=== PATIENT | female | born 1955 | race Two or more races ===

== ENCOUNTER 2017-03-18 08:13 | Outpatient (CLI) | payer OTHER ==
[2017-03-18 08:37] LABS: BASOPHILS # (AUTO) 0.1 10^3/uL (0.0-0.1); BASOPHILS % (AUTO) 1.2 %; EOSINOPHILS # (AUTO) 0.1 10^3/uL (0.0-0.7); EOSINOPHILS % (AUTO) 2.2 %; HCT - HEMATOCRIT 42.8 % (37.0-47.0); HGB - HEMOGLOBIN 14.6 g/dL (12.0-16.0); LYMPHOCYTES # (AUTO) 2.1 10^3/uL (1.5-3.5); LYMPHOCYTES % (AUTO) 36.1 %; MEAN CORPUSCULAR HEMOGLOBIN 30.7 pg (27.0-31.0); MEAN CORPUSCULAR VOLUME 90.2 fL (81.0-99.0); MONOCYTES # (AUTO) 0.6 10^3/uL (0.0-1.0); MONOCYTES % (AUTO) 10.7 %; NEUTROPHILS # (AUTO) 2.9 10^3/uL (1.5-6.6); NEUTROPHILS % (AUTO) 49.8 %; NUCLEATED RED BLOOD CELLS AUTO 0.1 /100WBC; RED BLOOD COUNT 4.75 10^6/uL (4.20-5.40); RED CELL DISTRIBUTION WIDTH 12.7 % (12.0-15.0); UNCORRECTED WHITE BLOOD COUNT 5.8 x10^3/uL; WHITE BLOOD COUNT 5.8 x10^3/uL (4.8-10.8)
[2017-03-18 08:53] LABS: ALBUMIN/GLOBULIN RATIO 1.4 (1.0-2.2); BILIRUBIN,TOTAL 0.6 mg/dL (0.2-1.0); BUN - BLOOD UREA NITROGEN 19 mg/dL (6-20); CALCIUM 9.3 mg/dL (8.5-10.3); CARBON DIOXIDE - CO2 28 mmol/L (21-32); CHLORIDE 105 mmol/L (101-111); CHOL/HDL RATIO 4.3 (<4.4); CHOLESTEROL 182 mg/dL; CREATININE 0.7 mg/dL (0.4-1.0); GFR - MDRD 85 (>89); GLUCOSE 95 mg/dL (70-100); HDL CHOLESTEROL 42 mg/dL; LDL/HDL RATIO 2.7 (<4.4); SODIUM 140 mmol/L (135-145); TOTAL PROTEIN 7.6 g/dL (6.7-8.2); TRIGLYCERIDES 129 mg/dL; VLDL CHOLESTEROL 26 mg/dL
== END 2017-03-18 08:14 | disposition home or self-care (01) ==
LOC: LAB 08:13
PROVIDERS: ATTEND Family Medicine
DX: Z00.00 Encounter for general adult medical examination without abnormal findings (principal)
CPT/HCPCS: 36415; 80053; 80061; 85025

== ENCOUNTER 2017-03-31 16:01 | Outpatient (CLI) | payer OTHER ==
--- NOTE | 2017-04-02 14:13 | Mammography Report ---
DIGITAL SCREENING MAMMOGRAM: 03/31/2017 CLINICAL INDICATION: A 61-year-old with history of late childbearing, for screening. COMPARISON: Films from [place], [place] dated 08/21/2015, 07/09/2014, 06/01/2013, 04/04/2012. TECHNIQUE: Routine CC and MLO projections were obtained of the breasts. FINDINGS: The breasts again demonstrate scattered fibroglandular densities bilaterally. Punctate, ty pically benign calcifications are present. Intramammary lymph nodes are stable. No suspicious masses, clustered microcalcifications, or regions of architectural distortion are identified. IMPRESSION: BENIGN FINDINGS. RECOMMENDATION: ROUTINE ANNUAL SCREENING UNLESS OTHERWISE CLINICALLY INDICATED. BIRADS CATEGORY 2-BENIGN FINDINGS. STANDARD QUALIFYING STATEMENTS 1. This examination was reviewed with the aid of Computer-Aided Detection (CAD). 2. A negative or benign imaging report should not delay biopsy if clinically suspicious findings are present. Consider surgical consultation if warranted. More than 5% of cancers are not identified by i maging. 3. Dense breasts may obscure an underlying neoplasm. JOB #: [id number] EXT JOB #:[id number]
== END 2017-03-31 16:02 | disposition home or self-care (01) ==
LOC: DI 16:01
PROVIDERS: ATTEND Family Medicine
DX: Z12.31 Encounter for screening mammogram for malignant neoplasm of breast (principal); Z87.898 Personal history of other specified conditions
CPT/HCPCS: 77067

== ENCOUNTER 2017-09-16 09:47 | Emergency (ER) | payer OTHER ==
--- NOTE | 2017-09-16 10:46 | ED Physician Documentation ---
PD HPI CHEST PAIN - Stated complaint Stated Complaint: CHEST PAIN - Chief complaint Chief Complaint: Cardiac - History obtained from History obtained from: Patient - History of Present Illness Timing - onset: How many weeks ago (1-2) Timing - onset during: Rest Timing - duration: Minutes Timing - details: Abrupt onset (has had intermittent feeling of pressure in chest, somewhat lightheaded, no pain per se. Lasts few minutes or so, then improves. Not exertional (does stationary bike at times without problems).), Intermittant Quality: Pressure, Tightness, Dull. No: Sharp, Tearing, Pain Location: Substernal Radiation: Neck Improved by: No: Rest Worsened by: No: Exertion Associated symptoms: Feeling faint / dizzy, General Weakness. No: Shortness of air, Diaphoresis, Nausea, Vomiting, Palpitations, Cough Similar symptoms before: Has not had sx before Recently seen: Clinic (went to PMD and is getting referral for stress testing through middle school counselor. That is in progress.) Review of Systems Constitutional: denies: Fever Nose: denies: Rhinorrhea / runny nose, Congestion Throat: denies: Sore throat Cardiac: denies: Palpitations, Pedal edema, Calf pain Respiratory: denies: Dyspnea, Cough GI: denies: Abdominal Pain, Nausea, Vomiting, Diarrhea Endocrine: denies: Weight loss, Weight gain Immunocompromised: denies: Immunocompromised PD PAST MEDICAL HISTORY - Past Medical History Cardiovascular: None Respiratory: None Neuro: None Endocrine/Autoimmune: None - Present Medications Home Medications: Ambulatory Orders Medication Instructions Recorded Confirmed Famotidine [Pepcid] 20 mg PO ONCE #30 tablet 09/16/17 - Allergies Allergies/Adverse Reactions: Allergies Allergy/AdvReac Type Severity Reaction Status Date / Time No Known Drug Allergies Allergy Verified 09/16/17 10:03 PD ED PE NORMAL - Vitals Vital signs reviewed: Yes - General General: Alert and oriented X 3, No acute distress, Well developed/nourished - HEENT HEENT: Pharynx benign - Neck Neck: Supple, no meningeal sign, No adenopathy, Thyroid normal, No JVD - Cardiac Cardiac: RRR, No murmur - Respiratory Respiratory: Clear bilaterally - Abdomen Abdomen: Soft, Non tender - Derm Derm: Normal color, Warm and dry - Extremities Extremities: No tenderness to palpate, Normal ROM s pain, No edema, No calf tenderness / cord - Neuro Neuro: Alert and oriented X 3, No motor deficit, Normal speech Results - Vitals Vitals: Vital Signs - 24 hr 09/16/17 09/16/17 09/16/17 09:52 10:03 11:29 Temperature 36.6 C Heart Rate 64 Respiratory 20 Rate Blood Pressure 149/109 H Blood Pressure 119/89 H [Left] Blood Pressure 124/66 [Right] O2 Saturation 100 09/16/17 09/16/17 12:19 12:34 Temperature Heart Rate 74 70 Respiratory 18 16 Rate Blood Pressure 120/64 122/64 Blood Pressure [Left] Blood Pressure [Right] O2 Saturation 98 98 Oxygen O2 Source Room air - EKG (time done) 09:54 Rate: Rate (enter#) (64) Rhythm: NSR [place]: Normal Intervals: Normal [place] Ischemia: Normal ST segments. No: ST elevation c/w ischemia, ST depression Compare to prior EKG: Old EKG unavailable - Labs Labs: Laboratory Tests 09/16/17 09/16/17 09/16/17 10:37 10:37 10:37 WBC 5.3 RBC 4.73 Hgb 14.6 Hct 42.8 MCV 90.4 MCH 30.9 MCHC 34.2 RDW 13.1 Plt Count 251 MPV 8.0 Neut # 2.9 Lymph # 1.8 Morton # 0.5 Eos # 0.1 Baso # 0.1 Absolute Nucleated RBC 0.00 Nucleated RBC % 0.0 Sodium 139 Potassium 3.8 Chloride 104 Carbon Dioxide 26 Anion Gap 9.0 BUN 17 Creatinine 0.7 Estimated GFR (MDRD) 85 L Glucose 92 Calcium 8.9 Total Bilirubin 0.5 AST 35 ALT 47 Alkaline Phosphatase 54 Troponin I < 0.04 B-Natriuretic Peptide Total Protein 7.6 Albumin 4.5 Globulin 3.1 Albumin/Globulin Ratio 1.5 Lipase 15 L 09/16/17 10:37 WBC RBC Hgb Hct MCV MCH MCHC RDW Plt Count MPV Neut # Lymph # Morton # Eos # Baso # Absolute Nucleated RBC Nucleated RBC % Sodium Potassium Chloride Carbon Dioxide Anion Gap BUN Creatinine Estimated GFR (MDRD) Glucose Calcium Total Bilirubin AST ALT Alkaline Phosphatase Troponin I B-Natriuretic Peptide 6 Total Protein Albumin Globulin Albumin/Globulin Ratio Lipase - Rads (name of study) chest Radiology: Prelim report reviewed, EMP read contemporaneously (normal size hear ; lungs clear) PD MEDICAL DECISION MAKING - ED course Complexity details: reviewed results, re-evaluated patient, considered differential (atypical pattern of intermittent pressure/lightheaded. Consider irregular rhythm. It is not exertional but PMD is setting referral for stress testing. Consider Holter as well. ), d/w patient Departure - Departure Disposition: 01 Home, Self Care Clinical Impression: Chest pain Qualifiers: Chest pain type: precordial pain Qualified Code(s): R07.2 - Precordial pain Condition: Stable Record reviewed to determine appropriate education?: Yes Instructions: ED Chest Pain Atypical Unkn Cause Prescriptions: Famotidine [Pepcid] 20 mg PO ONCE #30 tablet Comments: Your basic tests including blood chest x-ray and EKG are okay here. No signs of obvious significant disorder such as heart attack or heart failure or pneumonia etc. Consider possible reflux and so would suggest some famotidine daily for the next couple weeks. However episodic abnormalities such as irregular heart rhythm with food as well so follow-up with your primary care regarding the referral for stress testing but also I would suggest a awake overnight counselor the records for a week or 2 to see if there is any episodic rhythm disturbance. Recheck if worsening symptoms. Discharge Date/Time: 09/16/17 12:19
[2017-09-16] MEDS ORDERED: FAMOTIDINE 20 MG TABLET PO STA (11:08)
[2017-09-16 11:18] LABS: BASOPHILS # (AUTO) 0.1 10^3/uL (0.0-0.1); BASOPHILS % (AUTO) 1.1 %; EOSINOPHILS # (AUTO) 0.1 10^3/uL (0.0-0.7); EOSINOPHILS % (AUTO) 1.4 %; HGB - HEMOGLOBIN 14.6 g/dL (12.0-16.0); LYMPHOCYTES # (AUTO) 1.8 10^3/uL (1.5-3.5); MEAN CORPUSCULAR HEMOGLOBIN 30.9 pg (27.0-31.0); MEAN CORPUSCULAR HGB CONC 34.2 g/dL (32.0-36.0); MEAN CORPUSCULAR VOLUME 90.4 fL (81.0-99.0); MONOCYTES # (AUTO) 0.5 10^3/uL (0.0-1.0); MONOCYTES % (AUTO) 9.3 %; NEUTROPHILS # (AUTO) 2.9 10^3/uL (1.5-6.6); NEUTROPHILS % (AUTO) 55.2 %; PLT - PLATELET COUNT 251 10^3/uL (130-450); RED BLOOD COUNT 4.73 10^6/uL (4.20-5.40); RED CELL DISTRIBUTION WIDTH 13.1 % (12.0-15.0); WHITE BLOOD COUNT 5.3 x10^3/uL (4.8-10.8)
[2017-09-16 11:25] LABS: ALBUMIN 4.5 g/dL (3.2-5.5); ALBUMIN/GLOBULIN RATIO 1.5 (1.0-2.2); BILIRUBIN,TOTAL 0.5 mg/dL (0.2-1.0); CALCIUM 8.9 mg/dL (8.5-10.3); CREATININE 0.7 mg/dL (0.4-1.0); TOTAL PROTEIN 7.6 g/dL (6.7-8.2)
--- NOTE | 2017-09-16 11:39 | XRAY Report ---
EXAM: CHEST RADIOGRAPHY EXAM DATE: 09/16/2017 11:32 AM. CLINICAL HISTORY: Chest pain left sided. COMPARISON: None. TECHNIQUE: 2 views. FINDINGS: Lungs/Pleura: No definite acute infiltrate or focal consolidation. Minimal probable atelectasis or sc arring at the left lateral lung base. No pleural effusion. No pneumothorax. Mediastinum: Heart and mediastinal contours are unremarkable. Other: None. IMPRESSION: 1. No definite acute abnormality of the chest. 2. Left lower lung minimal probable scarring or atelectasis. [facility] Referring Provider Line: [phone] SITE ID: [id number]
--- NOTE | 2017-09-16 11:39 | XRAY Preliminary Report ---
Exam: XR CHEST 2 VIEW X-RAY IMPRESSION: 1. No definite acute abnormality of the chest. 2. Left lower lung minimal probable scarring or atelectasis. [facility] SITE ID: [id number]
[2017-09-16 12:35] VITALS: BP 122/64
== END 2017-09-16 12:19 | disposition home or self-care (01) ==
LOC: ED 09:47
DX: R07.2 Precordial pain (principal); R94.31 Abnormal electrocardiogram [ECG] [EKG]
CPT/HCPCS: 36415; 71046; 80053; 83690; 83880; 84484; 85025; 93005; 99283; A9270

== ENCOUNTER 2023-02-11 14:02 | Outpatient (CLI) | payer MEDICARE, OTHER ==
--- NOTE | 2023-02-11 14:34 | DEXA Report ---
PROCEDURE: Dexa Spine and/or Hip INDICATIONS: POST MENOPAUSAL TECHNIQUE: Dual energy x-ray absorptiometry (DXA) was performed on a eEye System. Regions measur ed are the AP Spine, femoral neck, and if needed forearm. COMPARISON: None FINDINGS: Lumbar Spine: Bone Mineral Density 0.97 g/cm/cm,T score -1.6. Left Femoral Neck: Bone Mineral Density 0.716 g/cm/cm, T score -2.3. Left Hip: Bone Mineral Density -0.771 g/cm/cm,T score -1.9. (T score greater or equal to -1.0: NORMAL) (T score from -1.1 to -2.4: OSTEOPENIA) (T score less than or equal to -2.5 to: OSTEOPOROSIS) Impression: By WHO criteria, this patient has low bone density (osteopenia) of the lumbar spine and of the hip. Patients with diagnosis of osteoporosis or osteopenia should have regular bone mineral density assess ment. For those eligible for Medicare, routine testing is allowed once every 2 years. Testing frequ ency can be increased for patients who have rapidly progressing disease or for those who are receivin g medical therapy to restore bone mass. Reviewed by: Nilsa Cadena MD on 02/11/2023 2:32 PM PDT Approved by: Nilsa Cadena MD on 02/11/2023 2:32 PM PDT Station ID: [id number]
== END 2023-02-11 14:03 | disposition home or self-care (01) ==
LOC: DI 14:02
PROVIDERS: ATTEND Physician Assistant
DX: Z78.0 Asymptomatic menopausal state (principal); M85.89 Other specified disorders of bone density and structure, multiple sites

== ENCOUNTER 2023-05-18 10:57 | Day surgery (SDC) | payer MEDICARE, OTHER ==
[2023-05-18] MEDS ORDERED: LACTATED RINGERS 1,000 ML IV ONE (11:01)
[2023-05-18] MEDS ORDERED: PROPOFOL 500 MG/50 ML 500 MG/50 ML VIAL ONE (11:32)
[2023-05-18] MEDS ORDERED: PROPOFOL 200 MG/20 ML VIAL IVP ONE ×2 (11:36→11:43)
--- NOTE | 2023-05-18 11:38 | ANESTHESIA ---
Pre-Anesthesia VS, & Labs - Diagnosis screening - Procedure colonoscopy Vital Signs: Temp Pulse Resp BP Pulse Ox O2 Flow Rate 36.0 C L 66 14 129/74 99 05/18/23 11:13 05/18/23 11:13 05/18/23 11:13 05/18/23 11:13 05/18/23 11:13 Height: 5 ft Weight (kg): 69 kg Body Mass Index: 29.7 BMI Classification: Overweight - NPO Other (prep as directed, water at 9am) - Is Patient ?: No Home Medications and Allergies Home Medications: Ambulatory Orders No Known Home Medications 05/18/23 No Known Home Medications 05/18/23 Allergies/Adverse Reactions: Allergies Allergy/AdvReac Type Severity Reaction Status Date / Time No Known Drug Allergies Allergy Verified 05/18/23 11:20 Anes History & Medical History - Anesthetic History Anesthesia Complications: reports: No previous complications - Medical History Cardiovascular: reports: None Pulmonary: reports: None Gastrointestinal: reports: None Urinary: reports: None Musculoskeletal: reports: None Endocrine/Autoimmune: reports: None Skin: reports: None Smoking Status: Never smoker Psychosocial: reports: Alcohol (wine with dinner) History of Cancer?: No - Surgical History General: reports: Colonoscopy Gynecologic: reports: section Exam General: Alert, Oriented x3 Mouth Opening: Greater than 4 Fingerbreadths Neck Mobility: Normal Mallampati classification: I Thyromental Distance: greater than 6 cm Respiratory: Lungs clear Cardiovascular: Regular rate Plan Anesthesia Type: Total IV Consent for Procedure(s) Verified and Reviewed: Yes Code Status: Attempt Resuscitation ASA classification: 2-Mild systemic disease Is this case an emergency?: No
[2023-05-18] MEDS ORDERED: LACTATED RINGERS 550 ML IV ONE (12:32)
[2023-05-18 12:55] VITALS: O2SAT 98
[2023-05-18 13:33] VITALS: BP 120/78
--- NOTE | 2023-05-18 15:28 | ANESTHESIA POST OP EVALUATION ---
Anesthesia Post Eval - Post Anesthesia Eval Vitals: Last Vital Signs Temp 36 C L 05/18/23 13:10 Pulse 72 05/18/23 13:10 Resp 14 05/18/23 13:10 BP 120/78 05/18/23 13:10 Pulse Ox 98 05/18/23 13:10 O2 Flow Rate CV Function Including HR & BP: Stable Pain Control: Satisfactory Nausea & Vomiting: Negative Mental Status: Baseline Respiratory Status: Airway Patent Hydration Status: Satisfactory Anesthesia Complications: None
== END 2023-05-18 10:58 | disposition home or self-care (01) ==
LOC: SDS 10:57
PROVIDERS: ATTEND Surgery
DX: Z12.11 Encounter for screening for malignant neoplasm of colon (principal); K57.30 Diverticulosis of large intestine without perforation or abscess without bleeding
CPT/HCPCS: G0121; J7120

== ENCOUNTER 2023-11-03 11:37 | Outpatient (CLI) | payer MEDICARE, OTHER ==
--- NOTE | 2023-11-03 16:12 | XRAY Report ---
PROCEDURE: Chest 2V INDICATIONS: ACUTE COUGH TECHNIQUE: 2 views of the chest were acquired. COMPARISON: 09/16/2017 FINDINGS: Surgical changes and devices: None. Lungs and pleura: Right lower lobe bronchial wall thickening and linear right lower lung airspace op acities. No pleural effusion. Left lung is clear. Mediastinum: Mediastinal contours appear normal. Heart size is normal. Bones and chest wall: No suspicious bony lesions. Overlying soft tissues appear unremarkable. IMPRESSION: Findings suggestive of mild bronchitis in the right lower lung with probable atelectasis. Reviewed by: Veda Fuentes MD on 11/03/2023 4:11 PM PDT Approved by: Veda Fuentes MD on 11/03/2023 4:11 PM PDT Station ID: [id number]
== END 2023-11-03 11:38 | disposition home or self-care (01) ==
LOC: DI 11:37
PROVIDERS: ATTEND Physician Assistant
DX: R05.1 Acute cough (principal); R91.8 Other nonspecific abnormal finding of lung field